=== PATIENT | male | born 1955 | race Hispanic/Latino ===

== ENCOUNTER 2016-11-01 11:28 | Emergency (ER) | payer MEDICAID, OTHER ==
[~2016-11-01 11:28] MED LIST: Sterile Water Irrigation 250 ML BOT ONE
[2016-11-01] MEDS ORDERED: Lidocaine 2% w/Epinephrine 1:200K 20 ML VIAL ONE (11:39)
[2016-11-01] MEDS ORDERED: Adacel (T-DAP) 0.5 ML VIAL ONE (11:50)
[2016-11-01] MEDS ORDERED: Bacitracin Zinc 1 Packet ONE (12:28)
[2016-11-01] MEDS ORDERED: Cephalexin 500 MG CAP ONE (12:42)
== END 2016-11-01 12:52 | disposition home or self-care (01) ==
LOC: MADERS 11:28
DX: S61.217A Laceration without foreign body of left little finger without damage to nail, initial encounter (principal); I10 Essential (primary) hypertension; Z79.899 Other long term (current) drug therapy; W45.8XXA Other foreign body or object entering through skin, initial encounter
CPT/HCPCS: 12002; 90471; 90715; J2001

== ENCOUNTER 2018-04-20 09:40 | Outpatient (CLI) | payer OTHER ==
--- NOTE | 2018-04-20 14:26 | RAD ---
RIGHT HIP 2 VIEWS: Date: 04/20/18 HISTORY: Hip pain. FINDINGS: There is flattening of the contour of the femoral head with degenerative change. There is loss of dis c space. Subchondral cystic changes are seen on both sides of the joint space. IMPRESSION: Abnormalities with flattening of the femoral head and loss of joint space. Degenerative changes with articular sclerosis and subchondral cystic change. Avascular necrosis is not excluded. MRI may be of benefit for further characterization. POS: DANIELA
== END 2018-04-20 09:41 | disposition home or self-care (01) ==
LOC: MADRAD 09:40
PROVIDERS: ATTEND Nurse Practitioner Family
DX: M25.551 Pain in right hip (principal); M16.11 Unilateral primary osteoarthritis, right hip; I96 Gangrene, not elsewhere classified

== ENCOUNTER 2018-10-11 17:19 | Emergency (ER) | payer OTHER ==
[2018-10-11] MEDS ORDERED: Metoclopramide HCl 10 MG/2 ML VIAL ONE (18:34)
[2018-10-11] MEDS ORDERED: methylPREDNISolone Sod Succ/PF 125 MG/2 ML VIAL ONE (18:34)
[2018-10-11] MEDS ORDERED: diphenhydrAMINE 50 MG/ML VIAL ONE (18:34)
--- NOTE | 2018-10-11 18:47 | CT ---
EXAM: Brain CTWithout contrast: HISTORY: Headache COMPARISON: None FINDINGS: Prominent sinus mucosal disease particularly within the ethmoid sinuses with what appear to be old bi lateral medial orbital wall fractures are residual from prior surgical change. No focal mass or midline shift. No intra or extra-axial hemorrhage. Sinuses and mastoids are clear of acute process. IMPRESSION: No mass or bleed or other significant acute intracranial process. 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
[2018-10-11 19:02] LABS: INR-International Normal Ratio 1.1; Prothrombin Time 13.8 SEC (12.0-14.7)
[2018-10-11 19:12] LABS: ALT (SGPT) 23 U/L (8-55); AST (SGOT) 22 U/L (5-34); Albumin 4.3 g/dL (3.4-4.8); Alkaline Phosphatase 100 U/L (40-150); Anion Gap 14 mmol/L (10-20); BUN (Urea Nitrogen) 16 mg/dL (8.4-25.7); Bilirubin, Total 0.3 mg/dL (0.2-1.2); Calc. Creatinine Clearance 0 mL/min (70-130); Calcium 10.1 mg/dL (7.8-10.44); Carbon Dioxide 22 mmol/L (23-31); Chloride 109 mmol/L (98-107); Estimated GFR-MDRD Greater than 90; Globulin 3.2 g/dL (2.4-3.5); Glucose 95 mg/dL (80-115); Potassium 4.1 mmol/L (3.5-5.1); Protein, Total 7.5 g/dL (5.8-8.1); Sodium 141 mmol/L (136-145)
[2018-10-11 19:13] LABS: #Basophils 0.1 thou/uL (0.0-0.2); #Eosinphils 0.4 thou/uL (0.0-0.7); #Lymphocytes 2.6 thou/uL (1.20-3.40); #Monocytes 0.6 thou/uL (0.11-0.59); #Neutrophils 3.5 thou/uL (1.40-6.50); %Basophils 0.9 % (0.0-1.0); %Eosinophils 5.7 % (0.0-10.0); %Lymphocytes 36.1 % (21.0-51.0); %Monocytes 8.5 % (0.0-10.0); %Neutrophils 48.8 % (42.0-75.0); Hemoglobin 13.5 g/dL (14.0-18.0); Mean Corpuscular HGB CONC 31.9 g/dL (32.0-36.0); Mean Corpuscular Hemoglobin 28.9 pg (27.0-31.0); Mean Corpuscular Volume 90.7 fL (78.0-98.0); Mean Platelet Volume 8.6 fL (7.4-10.4); Platelet Count 203 thou/uL (130-400); RBC Distribution Width 13.5 % (11.5-14.5); Red Blood Cell (RBC) Count 4.67 mill/uL (4.70-6.10); White Blood Cell (WBC) Count 7.2 thou/uL (4.8-10.8)
[2018-10-11 23:07] LABS: CSF Source CSF; Clarity Clear (Clear); Tube # 4; WBC/NonHematics Count - Manual 1 /cumm (0-5)
[2018-10-11 23:08] LABS: RBC Count - Manual 3 /cumm (None Seen)
[2018-10-11 23:15] LABS: CSF Source CSF; Clarity Clear (Clear); RBC Count - Manual 300 /cumm (None Seen); Tube # 1; WBC/NonHematics Count - Manual 1 /cumm (0-5)
== END 2018-10-11 23:30 | disposition home or self-care (01) ==
LOC: MADERS 17:19
DX: G43.909 Migraine, unspecified, not intractable, without status migrainosus (principal); E78.00 Pure hypercholesterolemia, unspecified; I10 Essential (primary) hypertension; Z79.899 Other long term (current) drug therapy
CPT/HCPCS: 62270; 70450; 80053; 85025; 85610; 87070; 87205; 89051; 96374; 96375; J1200; J2765; J2930

== ENCOUNTER 2021-03-10 20:31 | Emergency (ER) | payer MEDICARE ==
[2021-03-10 20:54] LABS: #Lymphocytes 1.2 thou/uL (1.20-3.40); #Monocytes 0.3 thou/uL (0.11-0.59); #Neutrophils 6.8 thou/uL (1.40-6.50); %Basophils 0.4 % (0.0-1.0); %Eosinophils 0.5 % (0.0-10.0); %Lymphocytes 13.9 % (21.0-51.0); %Monocytes 3.6 % (0.0-10.0); %Neutrophils 81.6 % (42.0-75.0); Hemoglobin 14.8 g/dL (14.0-18.0); Mean Corpuscular HGB CONC 31.1 g/dL (32.0-36.0); Mean Corpuscular Volume 99.7 fL (78.0-98.0); Mean Platelet Volume 9.2 fL (7.4-10.4); Platelet Count 185 thou/uL (130-400); RBC Distribution Width 13.1 % (11.5-14.5); Red Blood Cell (RBC) Count 4.77 mill/uL (4.70-6.10); White Blood Cell (WBC) Count 8.3 thou/uL (4.8-10.8)
[2021-03-10 21:19] LABS: ALT (SGPT) 29 U/L (8-55); AST (SGOT) 31 U/L (5-34); Acetaminophen Less than 6.0 mcg/mL (10.0-30.0); Alcohol 229 mg/dL (Less than 10); Alkaline Phosphatase 68 U/L (40-110); Anion Gap 11 mmol/L (10-20); BUN (Urea Nitrogen) 12 mg/dL (8.4-25.7); Bilirubin, Total 0.3 mg/dL (0.2-1.2); Calc. Creatinine Clearance 0 mL/min (70-130); Calcium 9.4 mg/dL (7.8-10.44); Carbon Dioxide 25 mmol/L (23-31); Chloride 106 mmol/L (98-107); Globulin 2.9 g/dL (2.4-3.5); Glucose 113 mg/dL (80-115); Potassium 3.9 mmol/L (3.5-5.1); Protein, Total 6.9 g/dL (5.8-8.1); Salicylate Less than 8.0 mg/dL (15.0-30.0); Sodium 138 mmol/L (136-145)
== END 2021-03-10 22:39 | disposition home or self-care (01) ==
LOC: MADERS 20:31
DX: F10.129 Alcohol abuse with intoxication, unspecified (principal); I10 Essential (primary) hypertension; E78.00 Pure hypercholesterolemia, unspecified; Z79.899 Other long term (current) drug therapy; Y90.7 Blood alcohol level of 200-239 mg/100 ml; W18.30XA Fall on same level, unspecified, initial encounter; Y93.01 Activity, walking, marching and hiking
CPT/HCPCS: 70450; 72125; 80053; 80307; 85025